=== PATIENT | male | born 1990 | race Hispanic/Latino ===

== ENCOUNTER 2022-03-23 18:40 | Emergency (ER) | payer OTHER ==
[~2022-03-23] VITALS: Ht 157.5 cm; Wt 67.6 kg
[2022-03-23] MEDS ORDERED: KETOROLAC 60 MG VIAL (30MG/ML) IM ONE (19:30)
[2022-03-23] MEDS ORDERED: CYCLOBENZAPRINE HCL 10 MG TABLET PO ONE (19:30)
[2022-03-23] MEDS ORDERED: NAPR-1180 PO (20:21)
[2022-03-23] MEDS ORDERED: CYCL10TA16 PO (20:22)
[2022-03-23 20:24] VITALS: BP 130/73
== END 2022-03-23 20:28 | disposition home or self-care (01) ==
LOC: EDH 18:40
DX: M54.50 Low back pain, unspecified (principal); Z79.1 Long term (current) use of non-steroidal anti-inflammatories (NSAID)
CPT/HCPCS: 72100; 96372; 99283; J1885